=== PATIENT | female | born 1980 | race Caucasian/White ===

== ENCOUNTER 2018-08-19 20:10 | Emergency (ER) | payer OTHER ==
[2018-08-19] MEDS ORDERED: NS 500 ML IV ONE (20:31)
--- NOTE | 2018-08-19 20:35 | EDPHY ---
H & P Time Seen by Provider: 08/19/18 20:25 HPI/ROS: HPI Shortness of breath. Lightheadedness. 37-year-old female by private vehicle with her friend. This patient states that she has had a sensation of shortness of breath as well as intermittent lightheadedness over the last 2 days. She also describes having tingling in both of her feet and some tingling in her face. She denies any significant past medical history. No prior history of coagulopathy. No recent prolonged sedentary activity. She is not on control. ROS: Constitutional: No fever, no chills. As above. Eyes: No discharge. No changes in vision. ENT: No sore throat. No nasal congestion or rhinorrhea. Respiratory: No cough. As above. Cardiac: No chest pain, no palpitations. Gastrointestinal: No abdominal pain, no vomiting, no diarrhea. Genitourinary: No hematuria. No dysuria or increased frequency with urination. Musculoskeletal: No back pain. No neck pain. No myalgias or arthralgias. Skin: No rashes. Neurological: No headache. No focal weakness or altered sensation. Past medical history: Orthopedic surgeries. Otherwise she denies any significant past medical history. Social history: Nonsmoker. No alcohol. Here with her friend. Physical Exam: General Appearance: Alert, mildly anxious, no distress. This patient is responding to questions appropriately and in full sentences. This patient appears well-hydrated and well-nourished. Eyes: Pupils equal and round no pallor or injection. No lid edema, erythema or injection. Respiratory: There are no retractions, lungs are clear to auscultation with good air movement bilaterally. Cardiovascular: Regular rate and rhythm. No murmur. Gastrointestinal: Abdomen is soft and nontender, no masses, bowel sounds normal. No focal tenderness at McBurney's point. No Garner sign. Neurological: Motor sensory function is grossly intact. Cranial nerves are normal. Gait is normal. Skin: Warm and dry, no rashes. Musculoskeletal: Neck is supple and nontender. Extremities are symmetrical. All joints range without pain or impingement. Psychiatric: No agitation. No depression. Database: EKG: EKG time is 8:57 p.m.; EKG shows a narrow complex normal sinus rhythm with a ventricular rate of 73. The [place], QRS, QT intervals are within normal limits. There are no ST-T wave changes indicative of ischemic or injury pattern. No evidence of right heart strain. Interpreted by me. Imaging: Chest x-ray PA and lateral; the cardiac mediastinal silhouette is unremarkable. No evidence of infiltrate or pneumothorax. No acute cardiopulmonary disease process noted. Interpreted by me. Procedures: Emergency department course: Triage vital signs reviewed. She is mildly hypertensive. Vital signs are otherwise normal. She is afebrile. IV was placed. She was placed on a monitoring tech. She was started on IV normal saline with 500 cc to be given over the next hour. EKG obtained and reviewed by myself. Her presentation is consistent with an anxiety type reaction. 9:35 p.m., the patient was re-evaluated. Her emergency department workup was discussed with her and her is currently at the bedside. She reports that she has been under stress with young kids. She does feel comfortable going home at this time. I feel this is reasonable. I will have her follow up with a primary care physician for re-evaluation this week. She is in agreement with this plan. Return to emergency department precautions have been reviewed with her. All of her questions were answered. She was discharged in good condition with her . Differential Diagnosis: The differential diagnosis on this patient includes but is not limited to panic attack, anxiety reaction. Pulmonary embolism, CHF, pulmonary hypertension, pneumonia, arrhythmia unlikely. This represents a partial list of diagnoses considered. These considerations are based on history, physical exam, past history, reassessment and diagnostic testing. Smoking Status: Never smoked Constitutional: Initial Vital Signs Temperature (C) 36.6 C 08/19/18 20:12 Heart Rate 86 08/19/18 20:12 Respiratory Rate 18 08/19/18 20:12 Blood Pressure 149/92 H 08/19/18 20:12 O2 Sat (%) 99 08/19/18 20:12 O2 Delivery Mode Room Air Allergies/Adverse Reactions: penicillin V potassium [From Pen-Vee K] Adverse Reaction (Mild, Verified 20:15) Hives Home Medications: Medication Instructions Recorded NK [No Known Home Meds] 11/15/15 Medical Decision Making - Diagnostics Imaging Results: Imaging Impressions Chest X-Ray 08/19/18 20:31 Impression: No acute pulmonary disease. - Data Points Laboratory Results: Laboratory Results 08/19/18 20:30 08/19/18 21:01 08/19/18 08/19/18 08/19/18 21:01 21:01 20:30 WBC 7.45 10^3/uL 10^3/uL (3.80-9.50) RBC 4.00 10^6/uL L 10^6/uL (4.18-5.33) Hgb 13.6 g/dL g/dL (12.6-16.3) Hct 39.3 % % (38.0-47.0) MCV 98.3 fL fL (81.5-99.8) MCH 34.0 pg pg (27.9-34.1) MCHC 34.6 g/dL g/dL (32.4-36.7) RDW 12.1 % % (11.5-15.2) Plt Count 278 10^3/uL 10^3/uL (150-400) MPV 9.6 fL fL (8.7-11.7) Neut % (Auto) 55.9 % % (39.3-74.2) Lymph % (Auto) 35.2 % % (15.0-45.0) Rankin % (Auto) 6.3 % % (4.5-13.0) Eos % (Auto) 1.6 % % (0.6-7.6) Baso % (Auto) 0.7 % % (0.3-1.7) Nucleat RBC Rel Count 0.0 % % (0.0-0.2) Absolute Neuts (auto) 4.17 10^3/uL 10^3/uL (1.70-6.50) Absolute Lymphs (auto) 2.62 10^3/uL 10^3/uL (1.00-3.00) Absolute Monos (auto) 0.47 10^3/uL 10^3/uL (0.30-0.80) Absolute Eos (auto) 0.12 10^3/uL 10^3/uL (0.03-0.40) Absolute Basos (auto) 0.05 10^3/uL 10^3/uL (0.02-0.10) Absolute Nucleated RBC 0.00 10^3/uL 10^3/uL (0-0.01) Immature Gran % 0.3 % % (0.0-1.1) Immature Gran # 0.02 10^3/uL 10^3/uL (0.00-0.10) D-Dimer Sodium 139 mEq/L mEq/L (135-145) Potassium 3.9 mEq/L mEq/L (3.3-5.0) Chloride 107 mEq/L mEq/L (97-110) Carbon Dioxide 22 mEq/l mEq/l (22-31) Anion Gap 10 mEq/L mEq/L (6-14) BUN 11 mg/dL mg/dL (7-23) Creatinine 0.6 mg/dL mg/dL (0.6-1.0) Estimated GFR > 60 Glucose 100 mg/dL mg/dL (70-100) Calcium 8.9 mg/dL mg/dL (8.5-10.4) Beta HCG, Qual NEGATIVE 08/19/18 08/19/18 08/19/18 20:30 20:30 20:30 WBC RBC Hgb Hct MCV MCH MCHC RDW Plt Count MPV Neut % (Auto) Lymph % (Auto) Rankin % (Auto) Eos % (Auto) Baso % (Auto) Nucleat RBC Rel Count Absolute Neuts (auto) Absolute Lymphs (auto) Absolute Monos (auto) Absolute Eos (auto) Absolute Basos (auto) Absolute Nucleated RBC Immature Gran % Immature Gran # D-Dimer < 0.27 ug/mLFEU ug/mLFEU (0.00-0.50) Sodium REJ Potassium REJ Chloride REJ Carbon Dioxide REJ Anion Gap REJ BUN REJ Creatinine REJ Estimated GFR REJ Glucose REJ Calcium REJ Beta HCG, Qual REJ Medications Given: Discontinued Medications Sodium Chloride (Ns) 500 mls @ 1,000 mls/hr IV EDNOW ONE PRN Reason: Protocol Stop: 08/19/18 21:00 Last Admin: 08/19/18 21:00 Dose: 500 mls Departure - Departure Disposition: Home, Routine, Self-Care Clinical Impression: Dyspnea, Lightheaded Condition: Good Instructions: Dyspnea (ED), Anxiety (ED) Additional Instructions: Read and follow provided instructions. Follow-up with a primary care physician in 1-2 days for re-evaluation. I have given you several options. Call their office and set up an appointment. I would like you to be re-evaluated this week. You will also need to establish a primary care physician relationship for your ongoing medical care. Return to the emergency department for worsening symptoms, worsening shortness of breath, chest pain or other serious concerns. Referrals: Rashida Callaway MD [Medical Doctor] - As per Instructions Mabel Quiroga MD [Medical Doctor] - As per Instructions Elsi Maurer MD [[facility] [place] Primary Care Provider] - As per Instructions
[2018-08-19 20:44] LABS: PLATELET COUNT 278 10^3/uL (150-400)
[2018-08-19 21:52] VITALS: BP 127/74
--- NOTE | 2018-08-19 23:06 | CPEKG ---
Test Reason : OPEN Blood Pressure : / mmHG Vent. Rate : 073 BPM Atrial Rate : 074 BPM P-R Int : 164 ms QRS Dur : 087 ms QT Int : 400 ms P-R-T Axes : 053 020 031 degrees QTc Int : 441 ms Sinus rhythm Confirmed by Dang Huerta ([id number]) on 08/19/2018 11:06:08 PM Referred By: Confirmed By:Dang Huerta
== END 2018-08-19 21:56 | disposition home or self-care (01) ==
DX: R06.02 Shortness of breath (principal); R42 Dizziness and giddiness; E86.9 Volume depletion, unspecified

== ENCOUNTER 2018-10-22 09:01 | Emergency (ER) | payer OTHER ==
[2018-10-22] MEDS ORDERED: PROMETHAZINE HCL 25 MG/ML INJ IVP ONE (09:13)
[2018-10-22] MEDS ORDERED: NS 1,000 ML IV ONE (09:13)
--- NOTE | 2018-10-22 09:14 | EDPHY ---
H & P Stated Complaint: N/V/D, dizziness, weakness, passed out. Time Seen by Provider: 10/22/18 09:08 HPI/ROS: HPI: This is a 37-year-old female who presents with Chief Complaint: N/V/D, dizziness, weakness, passed out. Location: GI Quality: Nausea, vomiting, diarrhea Duration: Since 10:00 p.m. Last night approximately 12 hr Signs and Symptoms: no fever, + nausea, + vomiting, no hematemesis, no blood in stool, no abdominal bloating, + diarrhea, no back pain, no urinary symptoms, no vaginal bleeding/discharge, no indigestion, no chest pain, no shortness of breath Timing: Sudden onset, acute, intermittent episodes Severity: Moderate Context: Patient reports that around 10:00 p.m. Last night she had sudden onset of nausea followed by vomiting several times in the toilet and then diarrhea several hours later. She reports that she has vomited and had diarrhea greater than 10 times. She believes that she may have food poisoning from salsa that she ate as the symptoms started approximately 3 hr after eating the salsa. She reports that she has abdominal cramping when she is vomiting and having diarrhea but she does not actually have abdominal pain. She feels that she is dizzy because she is dehydrated. She has not urinated since yesterday evening. She believes that when she was vomiting that she may have fainted but did not hit her head and denies any neck pain. She has no recent foreign travel. She has not had any recent antibiotics. LMP was approximately 2 weeks ago. No family members are sick. Modifying Factors: None Comment: ROS: A comprehensive 10 system review of systems is otherwise negative aside from elements mentioned in the history of present illness. MEDICAL/SURGICAL/SOCIAL HISTORY: Medical history: Generally healthy. Does not take any regular medications. Surgical history: Bilateral knee surgery, orthopedic surgeries Social history: . Nonsmoker. Denies drug use. Family history noncontributory. CONSTITUTIONAL: Patient is being wheeled into the room in a wheelchair asking for an emesis basin upon arrival to the room, nontoxic appearing adult white female, awake and alert, moderate distress HEENT: Atraumatic and normocephalic, PERRL, EOMI. Nares patent; no rhinorrhea; no nasal mucosal edema. Tympanic membranes clear. Oropharynx clear, no exudate and moist pink mucosa. Airway patent. No lymphadenopathy. No meningismus. Cardiovascular: Normal S1/S2, regular rate, regular rhythm, without murmur rub or gallop. PULMONARY/CHEST: Symmetrical and nontender. Clear to auscultation bilaterally. Good air movement. No accessory muscle usage. ABDOMEN: Soft, nondistended, nontender, no rebound, no guarding, no peritoneal signs, no masses or organomegaly. No CVAT. EXTREMITIES: 2/2 pulses, strength 5/5, no deformities, no clubbing, no cyanosis or edema. NEUROLOGICAL: no focal neuro deficits. GCS 15. SKIN: Warm and dry, no erythema. no rash. Good capillary refill. Source: Patient Exam Limitations: No limitations - Personal History LMP (Females 10-55): 8-14 Days Ago Current Tetanus Diphtheria and Acellular Pertussis (TDAP): Yes - Medical/Surgical History Hx Asthma: No Hx Chronic Respiratory Disease: No Hx Diabetes: No Hx Cardiac Disease: No Hx Renal Disease: No Hx Cirrhosis: No Hx Alcoholism: No Hx HIV/AIDS: No Hx Splenectomy or Spleen Trauma: No Other PMH: SURGERY FOR BROKEN BONES, bilat knee surgery - Social History Smoking Status: Never smoked Constitutional: Initial Vital Signs Temperature (C) 36.8 C 10/22/18 09:03 Heart Rate 86 10/22/18 09:03 Respiratory Rate 16 10/22/18 09:03 Blood Pressure 106/68 10/22/18 09:03 O2 Sat (%) 97 10/22/18 09:03 O2 Delivery Mode Room Air Allergies/Adverse Reactions: penicillin V potassium [From Pen-Vee K] Adverse Reaction (Mild, Verified 20:15) Hives Home Medications: Medication Instructions Recorded Promethazine HCl 25 mg PO Q6 PRN #12 tablet 10/22/18 Medical Decision Making ED Course/Re-evaluation: Vital signs reviewed and stable upon arrival. No systemic signs. IV access and laboratory studies ordered Patient's abdomen is soft and nontender and I doubt surgical process or need for imaging. Patient given 2 L normal saline and IV promethazine 12.5 mg 0947: Labs reviewed. No signs of leukocytosis/anemia/platelet dysfunction/EMANUEL/ elevated LFTs/electrolyte imbalance/pancreatitis/. 1030: Reassessed patient who reports 50% relief of symptoms. No episodes of vomiting or diarrhea in the 2 hr that she has been in the emergency room. Abdomen remains soft and nontender. Will discharge patient home with supportive care and a prescription for promethazine This patient was seen under the supervision of my secondary supervising physician. I evaluated care for this patient independently. Discussed this patient with Dr. Blanco who did not see the patient. Differential Diagnosis: Differential diagnosis includes but is not limited to urinary tract infection, appendicitis, gastroenteritis, dehydration, electrolyte imbalance. - Data Points Laboratory Results: Laboratory Results 10/22/18 09:20 10/22/18 09:20 10/22/18 10/22/18 10/22/18 09:20 09:20 09:20 WBC 8.32 10^3/uL 10^3/uL (3.80-9.50) RBC 4.16 10^6/uL L 10^6/uL (4.18-5.33) Hgb 14.0 g/dL g/dL (12.6-16.3) Hct 41.2 % % (38.0-47.0) MCV 99.0 fL fL (81.5-99.8) MCH 33.7 pg pg (27.9-34.1) MCHC 34.0 g/dL g/dL (32.4-36.7) RDW 12.1 % % (11.5-15.2) Plt Count 255 10^3/uL 10^3/uL (150-400) MPV 9.1 fL fL (8.7-11.7) Neut % (Auto) 91.4 % H % (39.3-74.2) Lymph % (Auto) 4.0 % L % (15.0-45.0) Dodge % (Auto) 3.8 % L % (4.5-13.0) Eos % (Auto) 0.2 % L % (0.6-7.6) Baso % (Auto) 0.2 % L % (0.3-1.7) Nucleat RBC Rel Count 0.0 % % (0.0-0.2) Absolute Neuts (auto) 7.60 10^3/uL H 10^3/uL (1.70-6.50) Absolute Lymphs (auto) 0.33 10^3/uL L 10^3/uL (1.00-3.00) Absolute Monos (auto) 0.32 10^3/uL 10^3/uL (0.30-0.80) Absolute Eos (auto) 0.02 10^3/uL L 10^3/uL (0.03-0.40) Absolute Basos (auto) 0.02 10^3/uL 10^3/uL (0.02-0.10) Absolute Nucleated RBC 0.00 10^3/uL 10^3/uL (0-0.01) Immature Gran % 0.4 % % (0.0-1.1) Immature Gran # 0.03 10^3/uL 10^3/uL (0.00-0.10) RBC/WBC/PLT Morphology TNP Platelet Estimate ADEQUATE (ADEQ) Sodium 139 mEq/L mEq/L (135-145) Potassium 3.9 mEq/L mEq/L (3.5-5.2) Chloride 108 mEq/L mEq/L (97-110) Carbon Dioxide 20 mEq/l L mEq/l (22-31) Anion Gap 11 mEq/L mEq/L (6-14) BUN 14 mg/dL mg/dL (7-23) Creatinine 0.6 mg/dL mg/dL (0.6-1.0) Estimated GFR > 60 Glucose 142 mg/dL H mg/dL (70-100) Calcium 8.7 mg/dL mg/dL (8.5-10.4) Total Bilirubin 1.0 mg/dL mg/dL (0.1-1.4) Conjugated Bilirubin 0.2 mg/dL mg/dL (0.0-0.5) Unconjugated Bilirubin 0.8 mg/dL mg/dL (0.0-1.1) AST 23 IU/L IU/L (14-46) ALT 20 IU/L IU/L (9-52) Alkaline Phosphatase 50 IU/L IU/L (38-126) Total Protein 7.7 g/dL g/dL (6.3-8.2) Albumin 4.5 g/dL g/dL (3.5-5.0) Lipase 57 IU/L IU/L (23-300) Beta HCG, Qual NEGATIVE Medications Given: Discontinued Medications Sodium Chloride (Ns) 1,000 mls @ 0 mls/hr IV EDNOW ONE; Wide Open PRN Reason: Protocol Stop: 10/22/18 09:14 Last Admin: 10/22/18 09:20 Dose: 1,000 mls Sodium Chloride (Ns) 1,000 mls @ 0 mls/hr IV EDNOW ONE; Wide Open PRN Reason: Protocol Stop: 10/22/18 09:14 Last Admin: 10/22/18 09:25 Dose: Not Given Promethazine HCl (Phenergan) 12.5 mg IVP EDNOW ONE Stop: 10/22/18 09:14 Last Admin: 10/22/18 09:25 Dose: 12.5 mg Departure - Departure Disposition: Home, Routine, Self-Care Clinical Impression: Gastroenteritis Condition: Good Instructions: Gastroenteritis (ED) Additional Instructions: Consume a minimum of 8-10 glasses of water or electrolyte fluid replacement drinks that include Gatorade, Powerade, Pedialyte. Eat a bland diet for the next 48 hours and then slowly advance as tolerated. Take promethazine 1 tab every 4 hours as needed for nausea, vomiting. Return to the Emergency Room if symptoms do not resolve in the next 48-72 hours , you spike a fever > 102 F, or experience intractable abdominal pain/nausea/ vomiting. Referrals: [facility],. [Clinic] - As per Instructions Prescriptions: Promethazine HCl 25 mg PO Q6 PRN #12 tablet PRN Reason: Nausea/Vomiting, Use 1st
[2018-10-22] MEDS: NS 1,000 ML IV ONE (09:20)
[2018-10-22 09:35] LABS: PLATELET COUNT 255 10^3/uL (150-400)
[2018-10-22 10:28] VITALS: BP 139/71
== END 2018-10-22 10:50 | disposition home or self-care (01) ==
DX: K52.9 Noninfective gastroenteritis and colitis, unspecified (principal); E86.9 Volume depletion, unspecified
CPT/HCPCS: 96374; J2550